=== PATIENT | female | born 1955 | race Caucasian/White ===

== ENCOUNTER 2018-02-27 08:54 | Day surgery (SDC) | payer BC ==
[~2018-02-27 08:54] MED LIST: LIDOCAINE HCL 1% MPF 30 SOL ONE; PROPOFOL 500 MG/50 ML EMU IV ONE
[2018-02-27] MEDS ORDERED: KETOROLAC TROMETHAMINE 30 MG/ML SOL ONE (09:32)
[2018-02-27 11:14] VITALS: TEMP 97.4
[2018-02-27 11:29] VITALS: PULSE 57
[2018-02-27 11:47] VITALS: BP 155/87; RESP 20; O2SAT 99
== END 2018-02-27 12:04 | disposition home or self-care (01) ==
LOC: SURG 08:54
PROVIDERS: ATTEND Internal Medicine Gastroenterology
DX: R10.13 Epigastric pain (principal); Q39.9 Congenital malformation of esophagus, unspecified; K44.9 Diaphragmatic hernia without obstruction or gangrene; L53.8 Other specified erythematous conditions
CPT/HCPCS: J1885; J2001; J2704